=== PATIENT | male | born 1930 | race American Indian/Alaskan Native ===

== ENCOUNTER 2017-04-25 10:26 | Day surgery (SDC) | payer MEDICARE ==
[2017-04-18 12:50] LABS: Basophils % (Auto) 0.8 % (0.0-1.8); Eosinophils % (Auto) 5.7 % (0.0-4.3); Hemoglobin 10.8 gm/dl (11.8-15.2); Mean Corpuscular HGB Conc 34 % (32-34); Mean Corpuscular Hemoglobin 29 pg (28-32); Mean Corpuscular Volume 84 fl (84-94); Platelet Count 179 K/mm3 (140-440); Red Cell Distribution Width 14.3 % (13.2-15.2); White Blood Count 4.6 K/mm3 (4.5-11.0)
[2017-04-18 13:06] LABS: BUN/Creatinine Ratio 14.34; Calcium 8.9 mg/dL (8.4-10.2); Chloride 101.6 mmol/L (98-107); Potassium 4.4 mmol/L (3.6-5.0)
--- NOTE | 2017-04-18 13:20 | Anesthesia Consultation ---
Anesthesia Consult and Med Hx Date of service: 04/18/17 - Airway Anesthetic Teeth Evaluation: Good, Partials (upper and lower) ROM Head & Neck: Adequate Mental/Hyoid Distance: Adequate Mallampati Class: Class I Intubation Access Assessment: Probably Good - Pulmonary Exam CTA: Yes - Cardiac Exam Cardiac Exam: RRR - Pre-Operative Health Status ASA Pre-Surgery Classification: ASA3 Proposed Anesthetic Plan: General - Pulmonary Hx Smoking: Yes (STOPPED 1994) Hx Sleep Apnea: No (LARRY PRE SCREEN HIGH RISK) - Cardiovascular System Hx Hypertension: Yes (X 50 YRS) Hx Heart Attack/AMI: No - Central Nervous System Hx Neuromuscular Disorder: No CVA: No Hx Psychiatric Problems: No - Gastrointestinal Hx Gastroesophageal Reflux Disease: Yes (Mild, on meds) - Endocrine Hx Cirrhosis: No 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
[~2017-04-25 10:26] MED LIST: ANCEF/STERILE WATER 2 GM/20 ML IV NR; NACL 0.9% 1000 ML 1,000 ML IV SCH
[2017-04-25] MEDS ORDERED: PEPCID IV NR (11:00)
[2017-04-25] MEDS ORDERED: NACL BACTERIOSTATIC INFILTRATI ONE (11:21)
[2017-04-25 12:07] LABS: BUN/Creatinine Ratio 12.5; Calcium 8.8 mg/dL (8.4-10.2); Chloride 100.1 mmol/L (98-107); Potassium 4.4 mmol/L (3.6-5.0)
[2017-04-25] MEDS ORDERED: D50W (25GM) Syringe IV ONE (12:11)
--- NOTE | 2017-04-25 12:45 | Anesthesia Day of Surgery ---
Anesthesia Day of Surgery - Day of Surgery Patient Examined: Yes Patient H&P Reviewed: Yes Patient is NPO: Yes
[2017-04-25] MEDS ORDERED: XYLOCAINE MPF 2% ONE (12:59)
[2017-04-25] MEDS ORDERED: DIPRIVAN 10 MG/ML IV ONE (12:59)
[2017-04-25] MEDS ORDERED: DILAUDID ONE (12:59)
[2017-04-25] MEDS ORDERED: OMNIPAQUE (300 MG) IR ONE (13:43)
--- NOTE | 2017-04-25 13:54 | Short Stay Summary ---
Short Stay Documentation Date of service: 04/25/17 - History H&P: obtained from office - Allergies and Medications Current Medications: Allergies No Known Allergies Allergy (Verified 04/17/17 16:01) Home Medications Medication Instructions Recorded Confirmed Last Taken Type Chlorthalidone [Thalitone] 25 mg PO QDAY 03/11/15 04/25/17 04/25/17 07:30 History Insulin Glargine [Lantus] 10 unit SUB-Q QHS 03/11/15 04/25/17 04/24/17 21:30 History 10 UNITS Losartan [Cozaar] 100 mg PO QDAY 03/11/15 04/25/17 04/24/17 History Omeprazole [PriLOSEC] 40 mg PO QDAY 03/11/15 04/25/17 04/23/17 History amLODIPine [Norvasc] 10 mg PO DAILY 03/11/15 04/25/17 04/24/17 History glipiZIDE [Glucotrol] 10 mg PO BID 03/11/15 04/25/17 04/25/17 07:30 History Cetirizine HCl [Allergy Relief] 10 mg PO PRN PRN 04/18/17 04/25/17 04/18/17 History Cholecalciferol Vit D3 [Vitamin D3] 2,000 unit PO QDAY 04/18/17 04/25/17 History Ezetimibe [Zetia] 5 mg PO QDAY 04/18/17 04/25/17 04/24/17 History Ferrous Gluconate [Fergon 325 MG 325 mg PO BID 04/18/17 04/25/17 04/24/17 History tab] Sodium Bicarbonate 650 mg PO DAILY 04/18/17 04/25/17 04/24/17 History Terazosin(Nf) [Hytrin (Nf)] 2 mg PO QHS 04/18/17 04/25/17 04/18/17 History Benzonatate [Tessalon Perles] 100 mg PO Q8HR PRN 04/25/17 04/25/17 Unknown History Cyanocobalamin [Vitamin B-12] 500 mcg PO DAILY 04/25/17 04/25/17 04/24/17 History Active Medications Cefazolin Sodium (Ancef/Sterile Water 2 Gm/20 Ml) 2 gm IV PREOP NR Stop: 04/25/17 23:59 Famotidine (Pepcid) 20 mg IV PREOP NR Stop: 04/25/17 15:00 Last Admin: 04/25/17 11:46 Dose: 20 mg Sodium Chloride (Nacl 0.9% 1000 Ml) 1,000 mls @ 75 mls/hr IV DIRECT RAMÍREZ Last Admin: 04/25/17 11:40 Dose: 75 mls/hr - Brief post op/procedure progress note Date of procedure: 04/25/17 Pre-op diagnosis: urethral stricture Post-op diagnosis: same Procedure: cysto, dviu, rpg Anesthesia: GETA Surgeon: LUIZA OSPINA Estimated blood loss: minimal Condition: stable - Hospital course Hospital course: will sanchez - Disposition Condition at discharge: Stable Disposition: DC-01 TO HOME OR SELFCARE Short Stay Discharge Plan Follow up with: PRIMARY CARE, [Primary Care Provider] - 7 Days
[2017-04-25] MEDS ORDERED: ZOFRAN ONE (13:56)
--- NOTE | 2017-04-25 14:53 | Fluoroscopy Report ---
RETROGRADE PYELOGRAM: History: Urethral stricture. There is adequate filling of the ureters and intrarenal collecting systems with no filling defects or anatomic abnormalities identified.
[2017-04-25 15:17] LABS: BUN/Creatinine Ratio 11.66; Calcium 8.5 mg/dL (8.4-10.2); Chloride 102.2 mmol/L (98-107); Potassium 4.6 mmol/L (3.6-5.0)
--- NOTE | 2017-04-25 15:35 | Operative Report ---
PREOPERATIVE DIAGNOSIS: Recurrent urethral stricture. POSTOPERATIVE DIAGNOSES: Recurrent urethral stricture. SECONDARY DIAGNOSES: Prostate cancer, status post external beam radiation therapy in the remote past (17 years ago [place], [place]). PROCEDURES: Cystoscopy, urethral dilatation, internal urethrotomy, bilateral retrograde pyelograms, Santana catheter placement. SURGEON: Abhinav Koehler MD ANESTHESIA: General. ESTIMATED BLOOD LOSS: Minimal. FLUIDS: Crystalloid. COMPLICATIONS: No complications. INDICATIONS: This 87-year-old gentleman who has been followed for several years, has relocated from [place] with diagnosis of prostate cancer and recurrent stricture. He has had internal urethrotomy in the past and has done well. He represents with similar symptoms and presents for endoscopic evaluation. DESCRIPTION OF PROCEDURE: The patient was taken to the operative suite, placed in a supine position. After adequate general anesthesia, placed in a dorsal lithotomy position, prepped and draped in a sterile fashion. Pancystourethroscopy was performed with a #21 scope. The patient has diffuse stenosis of the urethra. A 0.035 Glidewire was advanced into the bladder under fluoroscopic guidance. Cold knife was used to make gentle cuts at the 12 o'clock position of the urethra until I was able to advance into the bladder at the level of the prostate. The stricture retained more dense requiring two additional cuts at the 9 o'clock and 3 o'clock position. In his bladder, no tumors or stones were noted. Bilateral retrograde pyelograms were obtained with an 8 [place] catheter and 8 mL of contrast. No filling defects or obstruction. A #20-[place] urethral sound also could be negotiated without any difficulty. A #16 [place] burns paiute-tip catheter was advanced over a wire into the bladder with clear urine. Rectal exam was benign. He was extubated and taken to recovery room in stable condition. He will go home on [email or web address]. JOB# [id number] [facility]
[2017-04-25 17:03] VITALS: BP 142/72
== END 2017-04-25 15:54 | disposition home or self-care (01) ==
LOC: OR 10:26
PROVIDERS: ATTEND Urology
DX: N35.9 Urethral stricture, unspecified (principal); I10 Essential (primary) hypertension; K21.9 Gastro-esophageal reflux disease without esophagitis; E11.9 Type 2 diabetes mellitus without complications; Z79.84 Long term (current) use of oral hypoglycemic drugs; Z79.899 Other long term (current) drug therapy; Z88.8 Allergy status to other drugs, medicaments and biological substances; Z87.891 Personal history of nicotine dependence; Z98.890 Other specified postprocedural states; Z85.46 Personal history of malignant neoplasm of prostate
CPT/HCPCS: 36415; 52276; 74420; 80048; 82962; 85025; C1758; J0690; J1170; J2405; J2704; J7030; Q9967

== ENCOUNTER 2019-04-30 10:12 | Day surgery (SDC) | payer MEDICARE ==
--- NOTE | 2019-04-30 11:12 | Anesthesia Day of Surgery ---
Anesthesia Day of Surgery - Day of Surgery Patient Examined: Yes Patient H&P Reviewed: Yes Patient is NPO: Yes
--- NOTE | 2019-04-30 11:15 | Anesthesia Consultation ---
Anesthesia Consult and Med Hx Date of service: 04/30/19 - Airway Anesthetic Teeth Evaluation: Partials ROM Head & Neck: Adequate Mental/Hyoid Distance: Adequate Mallampati Class: Class II Intubation Access Assessment: Probably Good - Pre-Operative Health Status ASA Pre-Surgery Classification: ASA3 Proposed Anesthetic Plan: General - Pulmonary Hx Smoking: Yes (STOPPED 1994) Hx Sleep Apnea: No (LARRY PRE SCREEN HIGH RISK) - Cardiovascular System Hx Hypertension: Yes (X 52 YRS) Hx Heart Attack/AMI: No (Can climb two flights of stairs) - Central Nervous System Hx Neuromuscular Disorder: No CVA: No Hx Back Pain: Yes (NECK PAIN) Hx Psychiatric Problems: No - Gastrointestinal Hx Gastroesophageal Reflux Disease: Yes (Mild) - Endocrine Hx Renal Disease: Yes (Stage IV CKD) Hx Cirrhosis: No Hx Non-Insulin Dependent Diabetes: Yes - Hematic Hx Anemia: Yes (NOT RECENT) - Other Systems Hx Alcohol Use: No Hx Substance Use: No Hx Cancer: Yes (Prostate CA s/p radiation) Hx Obesity: No
[2019-04-30] MEDS ORDERED: SUBLIMAZE IV PRN (11:30)
[2019-04-30] MEDS ORDERED: ZOFRAN IV PRN (11:30)
[2019-04-30] MEDS ORDERED: LACTATED RINGERS 1,000 ML IV SCH (12:00)
[2019-04-30] MEDS ORDERED: XYLOCAINE MPF 2% ONE (13:22)
[2019-04-30] MEDS ORDERED: SUBLIMAZE ONE (13:23)
[2019-04-30] MEDS ORDERED: DIPRIVAN 10 MG/ML IV ONE (13:23)
[2019-04-30] MEDS ORDERED: NACL 0.9% IR ONE (13:46)
[2019-04-30] MEDS ORDERED: WATER FOR IRRIG STERILE IR ONE (13:46)
[2019-04-30] MEDS ORDERED: ANCEF/STERILE WATER 2 GM/20 ML IV NR (14:00)
--- NOTE | 2019-04-30 14:12 | Short Stay Summary ---
Short Stay Documentation Date of service: 04/30/19 Narrative H&P: 89 yr old male with prostate cancer & urethral stricture - History Past Medical History: diabetes, hypertension Social history: no significant social history, - Allergies and Medications Current Medications: Allergies No Known Allergies Allergy (Verified 04/17/17 16:01) Home Medications Medication Instructions Recorded Confirmed Last Taken Type Chlorthalidone [Thalitone] 25 mg PO QDAY 03/11/15 04/21/19 04/25/17 07:30 History Insulin Glargine [Lantus] 10 unit SUB-Q PRN PRN 03/11/15 04/21/19 04/24/17 21:30 History 10 UNITS Losartan [Cozaar] 100 mg PO QDAY 03/11/15 04/21/19 04/24/17 History amLODIPine [Norvasc] 10 mg PO DAILY 03/11/15 04/21/19 04/24/17 History glipiZIDE [Glucotrol] 5 mg PO BID 03/11/15 04/21/19 04/25/17 07:30 History Cetirizine HCl [Allergy Relief] 10 mg PO PRN PRN 04/18/17 04/21/19 04/18/17 History Cholecalciferol Vit D3 [Vitamin D3] 2,000 unit PO QDAY 04/18/17 04/21/19 04/24/17 History Ferrous Gluconate [Fergon 325 MG 325 mg PO BID 04/18/17 04/21/19 04/24/17 History tab] Sodium Bicarbonate 650 mg PO DAILY 04/18/17 04/21/19 04/24/17 History Cyanocobalamin [Vitamin B-12] 500 mcg PO DAILY 04/25/17 04/21/19 04/24/17 History Active Medications Cefazolin Sodium (Ancef/Sterile Water 2 Gm/20 Ml) 2 gm IV PREOP NR Stop: 04/30/19 23:59 Fentanyl (Sublimaze) 50 mcg IV Q5MIN PRN PRN Reason: Pain , Severe (7-10) Stop: 04/30/19 17:00 Lactated Ringer's (Lactated Ringers) 1,000 mls @ 125 mls/hr IV DIRECT RAMÍREZ Ondansetron HCl (Zofran) 4 mg IV ONCE PRN PRN Reason: Nausea And Vomiting Stop: 04/30/19 17:00 - Physical exam General appearance: no acute distress, well-nourished Integumentary: no rash HEENT: Atraumatic, PERRLA, EOMI Lungs: Clear to auscultation Heart: Regular rate, No murmurs Gastrointestinal: normal Extremities: no ischemia, No edema Neurological: Normal gait, Normal tone - Brief post op/procedure progress note Date of procedure: 04/30/19 Pre-op diagnosis: stricture Post-op diagnosis: same Procedure: cysto, DVIU, Anesthesia: GETA Surgeon: LUIZA OSPINA Estimated blood loss: minimal Condition: stable - Hospital course Hospital course: BACTRIM & NORCO ON CHART - Disposition Condition at discharge: Stable Disposition: DC-01 TO HOME OR SELFCARE Short Stay Discharge Plan Follow up with: [facility] [Primary Care Provider] - 7 Days
--- NOTE | 2019-04-30 14:59 | Fluoroscopy Report ---
FLUOROSCOPY RETROGRADE UROGRAPHY HISTORY: Urethral stricture COMPARISON: None. FINDINGS: 0.4 minutes of fluoroscopy time was provided by radiology during retrograde urography by the urologis t. 8 fluoroscopic images are presented. There is normal filling of the renal collecting systems bilat erally. No evidence for filling defects or abnormal dilatation. IMPRESSION: Unremarkable bilateral retrograde pyelograms. Signer Name: Yannick Roth Jr, MD Signed: 04/30/2019 2:55 PM Workstation Name: [id number]
[2019-04-30 15:14] VITALS: BP 160/67
--- NOTE | 2019-04-30 16:13 | Operative Report ---
PREOPERATIVE DIAGNOSIS: Urethral stricture. POSTOPERATIVE DIAGNOSIS: Urethral stricture. PROCEDURES: Cystoscopy, internal urethrotomy, bilateral retrograde pyelograms. SURGEON: Abhinav Koehler MD. ANESTHESIA: General. ESTIMATED BLOOD LOSS: Minimal. FLUIDS: Crystalloid. COMPLICATIONS: No complications. INDICATIONS: This patient is an 89-year-old gentleman with a history of prostate cancer, status post external beam radiation therapy 17 years ago in [place], [place]. He continues to have intermittent urethral strictures, requiring dilation in the past. He has had worsening symptoms, presents now for endoscopic evaluation. DESCRIPTION OF PROCEDURE: The patient was taken to the operative suite, placed in a supine position. After adequate general anesthesia, placed in a dorsal lithotomy position, prepped and draped in a sterile fashion. Pancystourethroscopy was performed with a 22-[place]or[place] cystoscope. The urethra had multiple areas of stricture. A 0.035 wire was placed under fluoroscopic guidance. At the 12 o'clock position, a cold knife was used to make an incision into the 12 o'clock position of the urethra. Scope was advanced through the prostate into the bladder, no tumors or stones were noted. Bilateral retrograde pyelograms were obtained with an 8-[place] catheter and 8 mL of contrast. No filling defects or obstruction could be appreciated. A 16-[place] viejas tip catheter was advanced over the wire without difficulty. Rectal exam was benign. He was extubated and taken to recovery room. He will go home with the Santana catheter on [place] and B[employer]. JOB# [id number] [facility]/GEREMIAS
--- NOTE | 2019-04-30 21:09 | Post Anesthesia Evaluation ---
- Post Anesthesia Evaluation Patient Participated: Yes Airway Patent: Yes Stable Respiratory Function: Yes Nausea/Vomiting: No Temp > 96.8F: Yes Pain Manageable: Yes Adequeate Hydration: Yes Anesthesia Complications: No Block Receding Appropriately: Not Applicable Patient on Ventilator: No
== END 2019-04-30 16:25 | disposition home or self-care (01) ==
LOC: OR 10:12
PROVIDERS: ATTEND Urology
DX: N35.819 Other urethral stricture, male, unspecified site (principal); I12.9 Hypertensive chronic kidney disease with stage 1 through stage 4 chronic kidney disease, or unspecified chronic kidney disease; N18.4 Chronic kidney disease, stage 4 (severe); E11.22 Type 2 diabetes mellitus with diabetic chronic kidney disease; E11.39 Type 2 diabetes mellitus with other diabetic ophthalmic complication; E78.00 Pure hypercholesterolemia, unspecified; K21.9 Gastro-esophageal reflux disease without esophagitis; M19.90 Unspecified osteoarthritis, unspecified site; D64.9 Anemia, unspecified; Z87.891 Personal history of nicotine dependence; Z79.899 Other long term (current) drug therapy; Z79.4 Long term (current) use of insulin; Z98.49 Cataract extraction status, unspecified eye; Z85.46 Personal history of malignant neoplasm of prostate; Z98.890 Other specified postprocedural states
CPT/HCPCS: 52005; 52275; 74420; 82803; 82962; A4217; C1758; C1769; J0690; J2704; J3010; J7120; Q9967